=== PATIENT | male | born 1970 | race Two or more races ===

== ENCOUNTER 2025-05-25 00:21 | Inpatient (IN) | payer OTHER ==
[~2025-05-25] VITALS: Ht 183.5 cm; Wt 90.0 kg
[2025-05-25 01:01] LABS: GLUCOMETER DEV NAME(LOC) ERT.7; GLUCOSE,POINT OF CARE 283 MG/DL (70-110)
[2025-05-25 02:13] LABS: PLATELET COUNT (AUTO) 225 K/uL (150-450); RED BLOOD CELL COUNT(AUTO) 4.86 MIL/uL (4.50-5.90); RED CELL DISTRIBUTION WIDTH 12.4 % (11.5-14.5); WHITE BLOOD COUNT (AUTO) 9.8 K/uL (4.5-11.0)
[2025-05-25 02:16] LABS: COVID AG,FIA SOURCE NASAL SWAB
[2025-05-25 02:20] LABS: CALCIUM, TOTAL 9.1 mg/dL (8.8-10.5); CREATININE 0.75 mg/dL (0.60-1.30); GLOMERULAR FILTR. RATE CALC > 60 mL/min (>60); GLUCOSE,RANDOM 233 mg/dL (70-110); SODIUM SERUM 139 mmol/L (136-145); UREA NITROGEN, BLOOD 13 mg/dL (7-18)
[2025-05-25 02:35] LABS: SARS-COV2 (COVID) ANTIGEN,FIA Negative (Negative)
[2025-05-25 06:29] LABS: APPEARANCE,URINE CLEAR (CLEAR); GLUCOSE, URINE (UA) >=1000 mg/dL (NEGATIVE); LEUKOCYTE ESTERASE ,URINE NEGATIVE (NEGATIVE); NITRATE,URINE NEGATIVE (NEGATIVE); OCCULT BLOOD,URINE NEGATIVE (NEGATIVE); PH,URINE DRUG SCREEN 5.5 (5.0-8.0); SPECIFIC GRAVITIY, URINE 1.043 (1.003-1.030)
[2025-05-25 06:36] LABS: SQUAMOUS EPITHELIAL CELL,UR Rare /LPF (None Seen)
[2025-05-25 06:41] LABS: AMPHET/METH SCREEN,URINE NEGATIVE (NEGATIVE); BARBITURATE SCREEN, URINE NEGATIVE (NEGATIVE); CANNABINOID SCREEN,URINE NEGATIVE (NEGATIVE); COCAINE SCREEN,URINE NEGATIVE (NEGATIVE); METHADONE SCREEN, URINE NEGATIVE (NEGATIVE)
[2025-05-25 06:51] LABS: ALCOHOL, URINE DRUG SCREEN NEGATIVE (NEGATIVE)
[2025-05-25] MEDS ORDERED: ACETAMINOPHEN 325 MG TABLET PO PRN (07:45)
[2025-05-25] MEDS ORDERED: ONDANSETRON HCL 4 MG/2 ML VIAL IVP PRN (07:45)
[2025-05-25] MEDS ORDERED: DEXTROSE 50%-WATER 25 GM/50 ML SYRINGE IVP PRN (08:00)
[2025-05-25] MEDS: HEPARIN SODIUM,PORCINE 5,000 UNITS/ML VIAL SQ SCH (08:52)
[2025-05-25] MEDS: INSULIN LISPRO 100 UNITS/ML SQ PRN (08:53)
[2025-05-25] MEDS: DOCUSATE SODIUM 100 MG CAPSULE PO SCH (09:03)
[2025-05-25 09:59] VITALS: BP 155/83; PULSE 68; RESP 20; TEMP 98.6; O2SAT 100
[2025-05-25 12:11] LABS: GLUCOMETER DEV NAME(LOC) 4E.2; GLUCOSE,POINT OF CARE 149 MG/DL (70-110)
[2025-05-25 18:41] LABS: GLUCOMETER DEV NAME(LOC) 6S.2; GLUCOSE,POINT OF CARE 211 MG/DL (70-110)
[2025-05-25] MEDS: INSULIN GLARGINE,HUM.REC.ANLOG 100 UNITS/ML SQ SCH (20:27)
[2025-05-25 20:35] VITALS: BP 146/82; PULSE 78; RESP 18; TEMP 97.3; O2SAT 96
[2025-05-25 20:55] LABS: GLUCOMETER DEV NAME(LOC) 6S.2; GLUCOSE,POINT OF CARE 269 MG/DL (70-110)
[2025-05-26 04:42] VITALS: BP 144/86; PULSE 76; RESP 18; TEMP 98.6; O2SAT 96
[2025-05-26 06:54] LABS: PLATELET COUNT (AUTO) 232 K/uL (150-450); RED BLOOD CELL COUNT(AUTO) 5.33 MIL/uL (4.50-5.90); RED CELL DISTRIBUTION WIDTH 12.6 % (11.5-14.5); WHITE BLOOD COUNT (AUTO) 8.5 K/uL (4.5-11.0)
[2025-05-26 07:19] LABS: CALCIUM, TOTAL 8.8 mg/dL (8.8-10.5); CREATININE 0.58 mg/dL (0.60-1.30); GLOMERULAR FILTR. RATE CALC > 60 mL/min (>60); GLUCOSE,RANDOM 160 mg/dL (70-110); SODIUM SERUM 137 mmol/L (136-145); UREA NITROGEN, BLOOD 16 mg/dL (7-18)
[2025-05-26 11:46] VITALS: BP 154/87; PULSE 80; RESP 18; TEMP 98.1; O2SAT 95
[2025-05-26 11:55] LABS: GLUCOMETER DEV NAME(LOC) 6S.2; GLUCOSE,POINT OF CARE 160 MG/DL (70-110)
[2025-05-26 13:56] LABS: GLUCOMETER DEV NAME(LOC) 4E.2; GLUCOSE,POINT OF CARE 257 MG/DL (70-110)
[2025-05-26] MEDS ORDERED: GLIP5TAB16 PO (17:09)
[2025-05-26 20:00] VITALS: BP 153/85; PULSE 77; RESP 18; TEMP 97.9; O2SAT 97
[2025-05-26 20:55] LABS: GLUCOMETER DEV NAME(LOC) 4E.2; GLUCOSE,POINT OF CARE 165 MG/DL (70-110)
== END 2025-05-26 21:10 | DRG 885 ==
LOC: EMS 00:21 → EDH 06:47 → 6S 09:56
PROVIDERS: ADMIT Internal Medicine; ATTEND Internal Medicine
PROC: GZ58ZZZ Individual Psychotherapy, Cognitive-Behavioral (ICD-10-PCS; principal; 2025-05-26)
PROC: GZ56ZZZ Individual Psychotherapy, Supportive (ICD-10-PCS; 2025-05-26)
DX: F33.2 Major depressive disorder, recurrent severe without psychotic features (principal); R45.851 Suicidal ideations; Z20.822 Contact with and (suspected) exposure to COVID-19; E11.65 Type 2 diabetes mellitus with hyperglycemia; I10 Essential (primary) hypertension; E78.00 Pure hypercholesterolemia, unspecified
CPT/HCPCS: 70490; 80048; 80307; 81001; 82962; 83735; 85025; 99285; G0480; J1644; J1815

== ENCOUNTER 2025-05-31 21:01 | Inpatient (IN) | payer OTHER ==
[~2025-05-31] VITALS: Ht 190.5 cm; Wt 91.0 kg
[~2025-05-31 21:01] MED LIST: GLIP5TAB16 PO
[2025-05-31 22:03] LABS: PLATELET COUNT (AUTO) 237 K/uL (150-450); RED BLOOD CELL COUNT(AUTO) 5.47 MIL/uL (4.50-5.90); RED CELL DISTRIBUTION WIDTH 12.5 % (11.5-14.5); WHITE BLOOD COUNT (AUTO) 8.6 K/uL (4.5-11.0)
[2025-05-31 22:11] LABS: CALCIUM, TOTAL 9.1 mg/dL (8.8-10.5); CREATININE 0.79 mg/dL (0.60-1.30); GLOMERULAR FILTR. RATE CALC > 60 mL/min (>60); GLUCOSE,RANDOM 224 mg/dL (70-110); SODIUM SERUM 140 mmol/L (136-145); UREA NITROGEN, BLOOD 19 mg/dL (7-18)
[2025-05-31 22:29] LABS: COVID AG,FIA SOURCE NASAL SWAB
[2025-05-31 22:33] LABS: SARS-COV2 (COVID) ANTIGEN,FIA Negative (Negative)
[2025-05-31] MEDS ORDERED: BISACODYL 10 MG RECTAL RECTAL SUPPOSITORY PR PRN (23:15)
[2025-05-31] MEDS ORDERED: ACETAMINOPHEN 325 MG TABLET PO PRN (23:15)
[2025-05-31] MEDS ORDERED: ALBUTEROL SULFATE 2.5 MG/0.5 ML NEB SOLUTION NEB PRN (23:15)
[2025-05-31] MEDS ORDERED: IPRATROPIUM BROMIDE 0.5 MG/2.5 ML NEB SOLUTION NEB PRN (23:15)
[2025-05-31] MEDS ORDERED: DEXTROSE 50%-WATER 25 GM/50 ML SYRINGE IVP PRN (23:15)
[2025-05-31] MEDS ORDERED: MORPHINE SULFATE 4 MG/ML SYRINGE IVP PRN (23:15)
[2025-05-31] MEDS ORDERED: HYDROCODONE/ACETAMINOPHEN 5-325 MG TABLET PO PRN (23:15)
[2025-05-31] MEDS ORDERED: ONDANSETRON HCL 4 MG/2 ML VIAL IVP PRN (23:15)
[2025-05-31] MEDS ORDERED: MAGNESIUM HYDROXIDE SUSPENSION 30 ML UDCUP PO PRN (23:15)
[2025-06-01] MEDS: HEPARIN SODIUM,PORCINE 5,000 UNITS/ML VIAL SQ SCH
[2025-06-01 06:53] LABS: APPEARANCE,URINE CLEAR (CLEAR); GLUCOSE, URINE (UA) 300-500 mg/dL (NEGATIVE); LEUKOCYTE ESTERASE ,URINE NEGATIVE (NEGATIVE); NITRATE,URINE NEGATIVE (NEGATIVE); OCCULT BLOOD,URINE NEGATIVE (NEGATIVE); PH,URINE DRUG SCREEN 5.5 (5.0-8.0); SPECIFIC GRAVITIY, URINE 1.031 (1.003-1.030)
[2025-06-01 07:00] LABS: ALCOHOL, URINE DRUG SCREEN NEGATIVE (NEGATIVE); AMPHET/METH SCREEN,URINE NEGATIVE (NEGATIVE); BARBITURATE SCREEN, URINE NEGATIVE (NEGATIVE); CANNABINOID SCREEN,URINE NEGATIVE (NEGATIVE); COCAINE SCREEN,URINE NEGATIVE (NEGATIVE); METHADONE SCREEN, URINE NEGATIVE (NEGATIVE)
[2025-06-01] MEDS: PANTOPRAZOLE SODIUM 40 MG DR TABLET PO SCH (08:30)
[2025-06-01 09:19] VITALS: BP 124/78; PULSE 63; RESP 18; TEMP 98; O2SAT 100
[2025-06-01 13:51] LABS: GLUCOMETER DEV NAME(LOC) 6S.2; GLUCOSE,POINT OF CARE 106 MG/DL (70-110)
[2025-06-01 19:25] LABS: GLUCOMETER DEV NAME(LOC) 6S.2; GLUCOSE,POINT OF CARE 134 MG/DL (70-110)
[2025-06-01 20:00] VITALS: BP 150/83; PULSE 74; RESP 20; TEMP 98.4; O2SAT 99
[2025-06-01 20:41] LABS: GLUCOMETER DEV NAME(LOC) 6S.2; GLUCOSE,POINT OF CARE 184 MG/DL (70-110)
[2025-06-01] MEDS: INSULIN LISPRO 100 UNITS/ML SQ PRN (21:31)
[2025-06-01] MEDS: ZOLPIDEM TARTRATE 5 MG TABLET PO PRN (23:00)
[2025-06-02 04:00] VITALS: BP 143/90; PULSE 67; RESP 18; TEMP 97.7; O2SAT 99
[2025-06-02 06:30] LABS: GLUCOMETER DEV NAME(LOC) 6S.2; GLUCOSE,POINT OF CARE 143 MG/DL (70-110)
[2025-06-02 08:14] VITALS: BP 150/88; PULSE 64; RESP 18; TEMP 97.8; O2SAT 99
[2025-06-02 20:00] VITALS: BP 119/84; PULSE 72; RESP 18; TEMP 97.7; O2SAT 99
[2025-06-02 21:16] LABS: GLUCOMETER DEV NAME(LOC) 4E.2; GLUCOSE,POINT OF CARE 110 MG/DL (70-110)
[2025-06-02 21:26] LABS: GLUCOMETER DEV NAME(LOC) 6S.2; GLUCOSE,POINT OF CARE 197 MG/DL (70-110)
[2025-06-03 04:00] VITALS: BP_SYST 120; BP_SYST 139; BP_DIAS 66; BP_DIAS 80; PULSE 65; PULSE 72; RESP 16; TEMP 97.9; O2SAT 95; O2SAT 96
[2025-06-03 06:20] LABS: GLUCOMETER DEV NAME(LOC) 6S.2; GLUCOSE,POINT OF CARE 158 MG/DL (70-110)
[2025-06-03 08:30] VITALS: BP 126/83; PULSE 65; RESP 17; TEMP 98; O2SAT 99
[2025-06-03 20:00] VITALS: BP 130/82; PULSE 73; RESP 18; TEMP 97.9; O2SAT 99
[2025-06-04 03:30] LABS: GLUCOSE,POINT OF CARE 170 MG/DL (70-110)
[2025-06-04 03:30] LABS: GLUCOMETER DEV NAME(LOC) 4E.2; GLUCOSE,POINT OF CARE 121 MG/DL (70-110)
[2025-06-04 03:31] LABS: GLUCOMETER DEV NAME(LOC) 4E.2; GLUCOSE,POINT OF CARE 152 MG/DL (70-110)
[2025-06-04 03:31] LABS: GLUCOMETER DEV NAME(LOC) 4E.2
[2025-06-04 04:00] VITALS: BP 130/78; PULSE 61; RESP 18; TEMP 97.7; O2SAT 97
[2025-06-04 06:16] LABS: GLUCOMETER DEV NAME(LOC) 6S.2; GLUCOSE,POINT OF CARE 129 MG/DL (70-110)
[2025-06-04 08:33] VITALS: BP 129/81; PULSE 60; RESP 18; TEMP 98; O2SAT 99
[2025-06-04 11:35] LABS: GLUCOMETER DEV NAME(LOC) 6S.2; GLUCOSE,POINT OF CARE 158 MG/DL (70-110)
[2025-06-04] MEDS ORDERED: ACET-2247 PO (11:37)
[2025-06-04] MEDS ORDERED: MAGN-169 PO (11:41)
[2025-06-04] MEDS ORDERED: INSU100V SQ ×2 (11:41→11:48)
== END 2025-06-04 18:09 | DRG 885 ==
LOC: EMS 21:45 → EDH 23:11 → 6S 06-01 07:38
PROVIDERS: ADMIT Hospitalist; ATTEND Hospitalist
PROC: GZ56ZZZ Individual Psychotherapy, Supportive (ICD-10-PCS; principal; 2025-06-02)
DX: F33.1 Major depressive disorder, recurrent, moderate (principal); R45.851 Suicidal ideations; Z20.822 Contact with and (suspected) exposure to COVID-19; F29 Unspecified psychosis not due to a substance or known physiological condition; E11.9 Type 2 diabetes mellitus without complications; E78.00 Pure hypercholesterolemia, unspecified; I10 Essential (primary) hypertension
CPT/HCPCS: 80048; 80307; 81001; 82962; 85025; 99285; G0378; G0480; J1644